=== PATIENT | female | born 1970 | race Caucasian/White ===

== ENCOUNTER 2018-12-15 11:49 | Emergency (ER) | payer OTHER ==
[2018-12-15] MEDS ORDERED: DIPH,PERTUSS(ACELL),TET VAC/PF 0.5 ML DISP.SYRIN IM ONE (12:11)
[2018-12-15] MEDS ORDERED: AMOXICILLIN/POT 875/125 1 EACH PO ONE (12:12)
--- NOTE | 2018-12-15 12:17 | ED Physician Documentation ---
Animal Bite - HPI Stated Complaint: Cat bite Chief Complaint: Animal Bite (Cat) Additional Information: Patient is a 48-year-old female who presents to the ER with c/o a cat bite to finger. She states that she is taking care of a friends cat and she was giving it its medicine and the cat bit her right thumb. Patient states she had her finger in its mouth. The cat is always indoors and current on immunizations. Patient is allergic to cat dandruff and knows that they can cause infections. She has a puncture dulce to the palmar side of thumb and the nail bed. Onset: today (10:00 a.m.) Where: other (friends house) Animal: cat, family pet Appearance of Animal: appeared well (takes medication for illness) Animal's Immunization Status: UTD Observation/ Capture of Animal: animal is known, can be observed Context of Attack: other (had her finger in its mouth giving him medicine) Severity of Injury: bitten, mucous membrane contact Location of Injury: R upper extremity Associated Symptoms: pain Further Comments: no - ROS CONST: none EYES/ENT: none CVS/RESP: none NEURO: none GI/: none MS/SKIN/LYMPH: none - PAST HX Past History: other (seasonal allergies) Immunizations: tetanus (> than 5 years), UTD Allergies/Adverse Reactions: Allergies Allergy/AdvReac Type Severity Reaction Status Date / Time adhesive Allergy Rash Verified 12/15/18 12:12 Home Medications: Ambulatory Orders Medication Instructions Recorded Amoxicillin/Potassium Clav 875 each PO BID #20 tablet 12/15/18 [Augmentin 875Mg/125Mg] Cetirizine HCl [Zyrtec] 10 mg PO DAILY 12/15/18 Estradiol [Estrace] 1 mg PO DAILY 12/15/18 - SOCIAL HX Smoking History: non-smoker Alcohol Use: rarely Drug Use: none - FAMILY HX Family History: none - VITAL SIGNS Vital Signs: Vital Signs Temp Pulse Resp BP Pulse Ox 97.8 F 72 18 121/77 99 12/15/18 12:03 12/15/18 12:03 12/15/18 12:03 12/15/18 12:03 12/15/18 12:03 - REVIEWED ASSESSMENTS Nursing Assessment Reviewed: Yes Vitals Reviewed: Yes ED Results Lab/Radiology - Orders Orders: ED Orders Category Date Time Status Amoxicillin/Potassium Clav [AUGMENTIN 875MG/125 mg Med 12/15/18 12:12 Once Tablet] 1 each PO NOW ONE Diph,Pertuss(Acell),Tet Vac/Pf [Adacel] Med 12/15/18 12:11 Once 0.5 ml IM .ONCE ONE Animal Bite Physical Exam - Physical Exam General Appearance: no acute distress, alert Skin: other (puncture) Neuro/Vascular/Tendon: no vascular compromise, oriented x3, sensation nml, ROM nml Psych: mood/affect nml HEENT: atraumatic, [place] Neck: uninjured, nml inspection Resp/CVS: breath sounds nml, heart sounds nml Extremities: other (right thumb puncture bite) Discharge Clincal Impression: Cat bite of finger Referrals: Primary Doctor,No [Primary Care Provider] - 2 Days Additional Instructions: Take Augmentin 875 mg by mouth twice a day for 10 days Take a ProBiotic daily for GI upset Increase water intake (juices can increase diarrhea) Cleanse finger with antibacterial soap often May apply antibiotic ointment We updated your tetanus vaccine today Follow up with PCP next week for re-evaluation Condition: Good Disposition: 01 HOME, SELF-CARE Decision to Admit: NO Decision Time: 12:16
[2018-12-15 12:27] VITALS: BP 112/69
== END 2018-12-15 12:25 | disposition home or self-care (01) ==
LOC: ED 11:49
DX: S61.051A Open bite of right thumb without damage to nail, initial encounter (principal); W55.01XA Bitten by cat, initial encounter; Y93.K9 Activity, other involving animal care; Y92.009 Unspecified place in unspecified non-institutional (private) residence as the place of occurrence of the external cause
CPT/HCPCS: 90471; 90715; 99283